=== PATIENT | female | born 1990 | race Caucasian/White ===

== ENCOUNTER → 2024-11-15 | Outpatient (CLI) | payer OTHER ==
[2024-11-15 15:47] LABS: PLATELET COUNT, AUTOMATED 327 10^3/uL (150-450)
[2024-11-15 15:56] LABS: ESTIMATED AVERAGE GLUCOSE 100.0 MG/DL (60-110)
[2024-11-15 16:11] LABS: LUTEINIZING HORMONE 6.6 mIU/ML
[2024-11-15 16:12] LABS: ESTRADIOL 67.6 PG/ML
== END ==
LOC: M PLALAB 12:44
PROVIDERS: ATTEND Obstetrics & Gynecology
DX: E28.2 Polycystic ovarian syndrome (principal)

== ENCOUNTER → 2024-12-07 | Outpatient (CLI) | payer OTHER | LOC: M WHC 13:56 | PROVIDERS: ATTEND Obstetrics & Gynecology | DX: E28.2 Polycystic ovarian syndrome (principal) ==

== ENCOUNTER 2025-02-22 05:53 | Day surgery (SDC) | payer OTHER ==
[~2025-02-22] VITALS: Ht 160 cm; Wt 103.6 kg
[~2025-02-22 05:53] MED LIST: AMPH1CAP16 PO; FERR325T19 PO; LEXA1TAB PO; PANT20TA6 PO; SPIR50TA4 PO
[2025-02-22 06:47] LABS: PLATELET COUNT, AUTOMATED 323 10^3/uL (150-450)
[2025-02-22] MEDS ORDERED: ONDANSETRON 4MG/2ML VIAL As Ordered ONE (06:47)
[2025-02-22] MEDS ORDERED: dexAMETHasone 4 MG/ML 1 ML VIAL As Ordered ONE (06:47)
[2025-02-22] MEDS ORDERED: LIDOCAINE 2% 100 MG/5 ML SDV (FOR ANES.) As Ordered ONE (06:47)
[2025-02-22] MEDS ORDERED: SUGAMMADEX SODIUM 500 MG/5 ML VIAL As Ordered ONE (06:47)
[2025-02-22] MEDS ORDERED: ROCURONIUM BROMIDE 50MG/5ML VIAL As Ordered ONE (06:47)
[2025-02-22] MEDS ORDERED: MIDAZOLAM INJ 2 MG/2 ML VIAL As Ordered ONE (06:53)
[2025-02-22] MEDS: SCOPOLAMINE 1MG TRANSDERMAL PATCH TOP ONE (07:14)
[2025-02-22] MEDS: LR 1,000 ML IV SCH (07:15)
[2025-02-22] MEDS: GABAPENTIN 300 MG CAP PO ONE (07:15)
[2025-02-22] MEDS: FAMOTIDINE 20 MG/2 ML VIAL IVP ONE (07:16)
[2025-02-22] MEDS: ceFAZolin SOD 2 GM IV ONCE IV ONE (07:46)
[2025-02-22] MEDS ORDERED: ACETAMINOPHEN 1000MG/100ML IV BAG As Ordered ONE (07:55)
[2025-02-22] MEDS ORDERED: KETOROLAC 30 MG/ML 1 ML VIAL As Ordered ONE (09:01)
[2025-02-22] MEDS: METHYLENE BLUE 0.5% (5 MG/ML) 10 ML AMP As Ordered ONE (09:09)
[2025-02-22] MEDS ORDERED: MORPHINE 2 MG/ML 1 ML VIAL IV PRN (09:15)
[2025-02-22] MEDS ORDERED: COLA100C5 PO (09:23)
[2025-02-22] MEDS ORDERED: ONDA-282 PO (09:24)
[2025-02-22] MEDS ORDERED: OXYC1TAB23 PO (09:25)
[2025-02-22] MEDS: HYDROMORPHONE HCL 0.5 MG/0.5 ML SYRINGE IV PRN (10:03)
[2025-02-22 12:30] VITALS: BP 134/75; TEMP 97.7; O2SAT 98
== END 2025-02-22 13:45 | disposition home or self-care (01) ==
LOC: M SDC 05:53 → EDSTATUS 07:30 → M SDC 13:45
PROVIDERS: ATTEND Obstetrics & Gynecology
DX: N93.9 Abnormal uterine and vaginal bleeding, unspecified (principal); R10.20 Pelvic and perineal pain unspecified side; D64.9 Anemia, unspecified; F90.9 Attention-deficit hyperactivity disorder, unspecified type; F41.9 Anxiety disorder, unspecified; Z79.899 Other long term (current) drug therapy
CPT/HCPCS: 36415; 58571; 81025; 85027; 86850; 86900; 86901; 88307; J0131; J0665; J0688; J1100; J1171; J1885; J2250; J2405; J3010; S2900